=== PATIENT | female | born 1930 | race Caucasian/White ===

== ENCOUNTER 2017-02-16 14:37 | Inpatient (IN) | payer OTHER, MEDICARE ==
[~2017-02-16] VITALS: Ht 157.5 cm; Wt 55.7 kg
[~2017-02-16 14:37] MED LIST: CIPRO500 MG PO; COUMADIN,JANTOVE1 MG PO; DOCUSATE SODIU100 MG PO; FLAGYL500 MG PO; NORCO 5/3251 TABLET PO; RECTIV30 GM PR; SKELAXIN800 MG PO; TOPROL XL50 MG PO; TYLENOL REGULA325 MG PO; ULTRAM50 MG PO; [UNRECOGNIZED DRUG - REMARK] PO
[2017-02-16 16:55] LABS: EOSINOPHIL (%) 0.7 % (0-5); EOSINOPHIL COUNT 0.1 K/uL (0-0.3); HEMATOCRIT 42.1 % (36.0-46.0); IMMATURE GRANULOCYTE (%) 0.7 % (0.0-0.7); IMMATURE GRANULOCYTE COUNT 0.1 K/uL; INSTRUMENT ABS NEUTROPHIL CT 9.6 K/uL; LYMPHOCYTE COUNT 1.7 K/uL (1.0-2.8); MCHC 30.2 G/DL (30.0-36.0); MCV 96.1 FL (83-99); MEAN PLAT.VOLUME 9.7 uM^3 (9.5-12.4); MONOCYTE (%) 6.4 % (3-12); MONOCYTE COUNT 0.8 K/uL (0-0.8); NEUTROPHIL (%) 78.1 % (45-76); NEUTROPHIL COUNT 9.6 K/uL (1.8-6.4); PLATELET COUNT 521 K/uL (156-360); RBC DIS.WIDTH-CV 15.4 % (11.8-14.6); RBC DIS.WIDTH-SD 54.8 % (39-53); RED BLOOD COUNT 4.38 M/uL (3.80-5.20); WHITE BLOOD COUNT 12.3 K/uL (4.1-10.2)
[2017-02-16 17:45] LABS: ADD MIUA? NO; BILIRUBIN NEGATIVE; BLOOD NEGATIVE; COLOR YELLOW ((YELLOW)); GLUCOSE (STRIP) NEGATIVE; KETONES 5; LEUKOCYTES NEGATIVE; NITRITE NEGATIVE; PROTEIN (STRIP) NEGATIVE; UROBILINOGEN 0.2 MG/DL (0.2-1.0)
[2017-02-16 18:08] LABS: SPECIFIC GRAVITY > 1.060 (1.000-1.030)
[2017-02-16 23:59] VITALS: BP 90/47
[2017-02-17] VITALS (7 sets, daily range): BP systolic 90–139; BP diastolic 50–76
[2017-02-17 07:38] LABS: INTER. NORMALIZED RATIO 1.2; PROTHROMBIN TIME 12.4 (9.2-11.2); PTT 29.9 (25-32)
[2017-02-17 08:52] LABS: ANION GAP 9 MEQ/L (2-14); CHLORIDE 105 MEQ/L (99-109); POTASSIUM 4.9 MEQ/L (3.7-5.4); SAMPLE HEMOLYSIS CHECK 0; SAMPLE ICTERIC CHECK 0; SAMPLE LIPEMIA CHECK 0; SODIUM 139 MEQ/L (136-147)
[2017-02-17 08:55] LABS: HEMATOCRIT 31.7 % (36.0-46.0); MCH 29.3 PG (29.0-34.0); MCHC 31.2 G/DL (30.0-36.0); MCV 93.8 FL (83-99); MEAN PLAT.VOLUME 9.9 uM^3 (9.5-12.4); PLATELET COUNT 402 K/uL (156-360); RBC DIS.WIDTH-CV 15.6 % (11.8-14.6); RBC DIS.WIDTH-SD 53.4 % (39-53); WHITE BLOOD COUNT 14.4 K/uL (4.1-10.2)
[2017-02-17 08:58] LABS: GFR ESTIMATE (CALCULATED) > 59 mL/min/; GLUCOSE 82 mg/dL (70-99); RED BLOOD COUNT 3.38 M/uL (3.80-5.20); UREA NITROGEN (BUN) 10 mg/dL (9-23)
[2017-02-17 10:06] LABS: DIRECT BILIRUBIN 0.1 mg/dL (0.0-0.3)
[2017-02-17 10:07] LABS: TOTAL BILIRUBIN 0.5 MG/DL (0.0-1.0)
[2017-02-17 10:11] LABS: ALKALINE PHOSPHATASE 75 IU/L (3-129)
[2017-02-17] MEDS ORDERED: POTASSIUM CHLO20 ME1 PO (10:17)
[2017-02-17] MEDS ORDERED: METOPROLOL SUC100 MG PO (10:18)
[2017-02-17] MEDS ORDERED: FUROSEMIDE20 MG PO (10:19)
[2017-02-17] MEDS ORDERED: LO-DOSE ASPIRIN81 M2 PO (10:20)
[2017-02-17] MEDS ORDERED: CARBIDOPA-LEVO1 EAC5 PO (10:21)
[2017-02-17] MEDS ORDERED: DONEPEZIL HCL10 MG PO (10:22)
[2017-02-17] MEDS ORDERED: VESICARE10 MG PO (10:22)
[2017-02-18 04:03] VITALS: BP 105/55
[2017-02-18 07:13] LABS: EOSINOPHIL (%) 1.2 % (0-5); EOSINOPHIL COUNT 0.1 K/uL (0-0.3); HEMATOCRIT 30.2 % (36.0-46.0); IMMATURE GRANULOCYTE (%) 0.4 % (0.0-0.7); INSTRUMENT ABS NEUTROPHIL CT 7.4 K/uL; LYMPHOCYTE COUNT 1.2 K/uL (1.0-2.8); MCH 28.9 PG (29.0-34.0); MCHC 30.5 G/DL (30.0-36.0); MEAN PLAT.VOLUME 10.1 uM^3 (9.5-12.4); MONOCYTE (%) 6.4 % (3-12); MONOCYTE COUNT 0.6 K/uL (0-0.8); NEUTROPHIL (%) 78.7 % (45-76); NEUTROPHIL COUNT 7.4 K/uL (1.8-6.4); PLATELET COUNT 345 K/uL (156-360); RBC DIS.WIDTH-CV 15.7 % (11.8-14.6); RBC DIS.WIDTH-SD 54.4 % (39-53); RED BLOOD COUNT 3.18 M/uL (3.80-5.20)
[2017-02-18 07:17] LABS: WHITE BLOOD COUNT 9.4 K/uL (4.1-10.2)
[2017-02-18 07:36] LABS: ALKALINE PHOSPHATASE 62 IU/L (3-129); ANION GAP 8 MEQ/L (2-14); CHLORIDE 109 MEQ/L (99-109); GFR ESTIMATE (CALCULATED) > 59 mL/min/; GLUCOSE 88 mg/dL (70-99); POTASSIUM 3.6 MEQ/L (3.7-5.4); SAMPLE HEMOLYSIS CHECK 0; SAMPLE ICTERIC CHECK 0; SAMPLE LIPEMIA CHECK 0; SODIUM 140 MEQ/L (136-147); TOTAL BILIRUBIN 0.2 MG/DL (0.0-1.0); UREA NITROGEN (BUN) 7 mg/dL (9-23)
[2017-02-18 07:47] VITALS: BP 116/64
[2017-02-18 11:46] VITALS: BP 98/57
[2017-02-18 16:32] VITALS: BP 118/66
[2017-02-18 20:00] VITALS: BP 102/62
[2017-02-18 23:50] VITALS: BP 124/74
[2017-02-19 04:07] VITALS: BP 137/70
[2017-02-19 06:36] LABS: HEMATOCRIT 30.8 % (36.0-46.0); MCH 28.9 PG (29.0-34.0); MCHC 30.8 G/DL (30.0-36.0); MCV 93.6 FL (83-99); PLATELET COUNT 360 K/uL (156-360); RBC DIS.WIDTH-CV 15.6 % (11.8-14.6); RBC DIS.WIDTH-SD 53.4 % (39-53); RED BLOOD COUNT 3.29 M/uL (3.80-5.20); WHITE BLOOD COUNT 9.4 K/uL (4.1-10.2)
[2017-02-19 07:34] VITALS: BP 118/73
[2017-02-19 09:35] LABS: CHLORIDE 108 mEq/L (99-109); POTASSIUM 3.4 mEq/L (3.7-5.4); SODIUM 138 mEq/L (136-147)
[2017-02-19 09:37] LABS: GLUCOSE 123 mg/dL (70-99)
[2017-02-19 09:38] LABS: ANION GAP 9 MEQ/L (2-14)
[2017-02-19 09:41] LABS: GFR ESTIMATE (CALCULATED) > 59 mL/min/
[2017-02-19 09:42] LABS: UREA NITROGEN (BUN) 5 mg/dL (9-23)
[2017-02-19 11:14] VITALS: BP 121/60
[2017-02-19 16:00] VITALS: BP 114/55
[2017-02-19 19:48] VITALS: BP 134/72
[2017-02-19 23:34] VITALS: BP 119/58
[2017-02-20 03:11] VITALS: BP 103/54
[2017-02-20 06:09] LABS: HEMATOCRIT 30.6 % (36.0-46.0); MCV 93.3 FL (83-99); MEAN PLAT.VOLUME 9.8 uM^3 (9.5-12.4); PLATELET COUNT 377 K/uL (156-360); RBC DIS.WIDTH-CV 15.7 % (11.8-14.6); RBC DIS.WIDTH-SD 53.7 % (39-53); RED BLOOD COUNT 3.28 M/uL (3.80-5.20); WHITE BLOOD COUNT 9.7 K/uL (4.1-10.2)
[2017-02-20 06:35] LABS: ANION GAP 8 MEQ/L (2-14); CHLORIDE 109 MEQ/L (99-109); GFR ESTIMATE (CALCULATED) > 59 mL/min/; POTASSIUM 3.5 MEQ/L (3.7-5.4); SAMPLE HEMOLYSIS CHECK 0; SAMPLE ICTERIC CHECK 0; SAMPLE LIPEMIA CHECK 0; SODIUM 140 MEQ/L (136-147); UREA NITROGEN (BUN) 3 mg/dL (9-23)
[2017-02-20 06:37] LABS: GLUCOSE 90 mg/dL (70-99)
[2017-02-20 08:31] LABS: MAGNESIUM 1.8 mg/dl (1.3-2.7)
[2017-02-20 10:10] VITALS: BP 111/64
[2017-02-20 12:05] VITALS: BP 99/71
[2017-02-20 15:15] VITALS: BP 104/66
[2017-02-20 20:18] VITALS: BP 109/74
[2017-02-21] VITALS (7 sets, daily range): BP systolic 105–127; BP diastolic 56–89
[2017-02-21 06:41] LABS: HEMATOCRIT 32.8 % (36.0-46.0); MCH 29.1 PG (29.0-34.0); MCHC 31.1 G/DL (30.0-36.0); MCV 93.7 FL (83-99); PLATELET COUNT 420 K/uL (156-360); RBC DIS.WIDTH-CV 15.9 % (11.8-14.6); RBC DIS.WIDTH-SD 54.5 % (39-53); WHITE BLOOD COUNT 9.6 K/uL (4.1-10.2)
[2017-02-21 07:03] LABS: ANION GAP 7 MEQ/L (2-14); CHLORIDE 108 MEQ/L (99-109); GFR ESTIMATE (CALCULATED) > 59 mL/min/; GLUCOSE 87 mg/dL (70-99); POTASSIUM 3.8 MEQ/L (3.7-5.4); SAMPLE HEMOLYSIS CHECK 0; SAMPLE ICTERIC CHECK 0; SAMPLE LIPEMIA CHECK 0; SODIUM 137 MEQ/L (136-147); UREA NITROGEN (BUN) 3 mg/dL (9-23)
[2017-02-22 03:52] VITALS: BP 114/76
[2017-02-22 06:50] VITALS: BP 121/71
[2017-02-22] MEDS ORDERED: FLAGYL500 MG/100 IV (11:24)
[2017-02-22] MEDS ORDERED: ROCEPHIN1 GM/50 ML IV (11:24)
[2017-02-22 12:04] VITALS: BP 123/74
== END 2017-02-22 15:46 | DRG 872 ==
LOC: EME 14:37 → EDOF 17:00 → 2EAST 17:00
PROVIDERS: Emergency Medicine; Hospitalist; Physician Assistant; Radiology Diagnostic Radiology
PROC: 0W9J30Z Drainage of Pelvic Cavity with Drainage Device, Percutaneous Approach (ICD-10-PCS; principal; 2017-02-17)
DX: A41.9 Sepsis, unspecified organism (principal); N82.3 Fistula of vagina to large intestine; K57.92 Diverticulitis of intestine, part unspecified, without perforation or abscess without bleeding; I48.2 Chronic atrial fibrillation; I95.9 Hypotension, unspecified; G20 Parkinson's disease; D64.9 Anemia, unspecified; G62.9 Polyneuropathy, unspecified; F03.90 Unspecified dementia, unspecified severity, without behavioral disturbance, psychotic disturbance, mood disturbance, and anxiety; B95.1 Streptococcus, group B, as the cause of diseases classified elsewhere
CPT/HCPCS: 36415; 74177; 75989; 80048; 80053; 80076; 81003; 82948; 83605; 83690; 83735; 85025; 85025 91; 85027; 85610; 85730; 87040; 87070; 87075; 87076; 87077; 87185; 87186; 87205; 93005; 99281; 99285; C1729; C1769; J0692; J0696; J1650; J2270; J2405; J2543; J3010; J3475; J7030; J7050; S0030

== ENCOUNTER 2017-03-06 14:25 | Inpatient (IN) | payer OTHER, MEDICARE ==
[~2017-03-06] VITALS: Ht 157.5 cm; Wt 56.0 kg
[~2017-03-06 14:25] MED LIST changes: +CARBIDOPA-LEVO1 EAC5 PO; +DONEPEZIL HCL10 MG PO; +FLAGYL500 MG/100 IV; +FUROSEMIDE20 MG PO; +LO-DOSE ASPIRIN81 M2 PO; +METOPROLOL SUC100 MG PO; +POTASSIUM CHLO20 ME1 PO; +ROCEPHIN1 GM/50 ML IV; +VESICARE10 MG PO
[2017-03-06] MEDS ORDERED: MILK OF MAGN PO (15:00)
[2017-03-06 16:34] LABS: EOSINOPHIL (%) 2.1 % (0-5); EOSINOPHIL COUNT 0.2 K/uL (0-0.3); HEMATOCRIT 39.1 % (36.0-46.0); IMMATURE GRANULOCYTE (%) 0.5 % (0.0-0.7); IMMATURE GRANULOCYTE COUNT 0.1 K/uL; LYMPHOCYTE COUNT 2.8 K/uL (1.0-2.8); MCH 29.6 PG (29.0-34.0); MCHC 31.7 G/DL (30.0-36.0); MCV 93.3 FL (83-99); MEAN PLAT.VOLUME 10.2 uM^3 (9.5-12.4); MONOCYTE (%) 8.6 % (3-12); NEUTROPHIL (%) 63.5 % (45-76); PLATELET COUNT 316 K/uL (156-360); RBC DIS.WIDTH-CV 17.2 % (11.8-14.6); RBC DIS.WIDTH-SD 59.9 % (39-53); RED BLOOD COUNT 4.19 M/uL (3.80-5.20)
[2017-03-06 16:37] LABS: CHLORIDE 104 mEq/L (99-109); POTASSIUM 3.9 mEq/L (3.7-5.4); SODIUM 138 mEq/L (136-147)
[2017-03-06 16:39] LABS: GLUCOSE 117 mg/dL (70-99)
[2017-03-06 16:41] LABS: ANION GAP 10 MEQ/L (2-14); TOTAL BILIRUBIN 0.5 mg/dL (0.0-1.0)
[2017-03-06 16:43] LABS: ALKALINE PHOSPHATASE 51 IU/L (3-129); GFR ESTIMATE (CALCULATED) > 59 mL/min/
[2017-03-06 16:44] LABS: UREA NITROGEN (BUN) 7 mg/dL (9-23)
[2017-03-06 17:18] LABS: C-REACTIVE PROTEIN 10.9 MG/L (0-10)
[2017-03-06 18:09] LABS: ERTH.SED.RATE 51 MM/HR (0-30)
[2017-03-06] MEDS ORDERED: CALCIUM 600 +1 EAC2 PO (21:50)
[2017-03-06] MEDS ORDERED: KEFLEX500 MG PO (21:51)
[2017-03-06] MEDS ORDERED: FLAGYL500 MG PO (21:52)
[2017-03-06] MEDS ORDERED: DULCOLAX10 MG PR (21:53)
[2017-03-06] MEDS ORDERED: FLEET ENEMA-AD118 ML PR (21:54)
[2017-03-07] VITALS (7 sets, daily range): BP systolic 101–145; BP diastolic 51–95
[2017-03-07 05:53] LABS: HEMATOCRIT 37.3 % (36.0-46.0); MCH 28.8 PG (29.0-34.0); MCHC 29.8 G/DL (30.0-36.0); MCV 96.6 FL (83-99); MEAN PLAT.VOLUME 10.2 uM^3 (9.5-12.4); PLATELET COUNT 241 K/uL (156-360); RBC DIS.WIDTH-CV 17.2 % (11.8-14.6); RBC DIS.WIDTH-SD 61.6 % (39-53); RED BLOOD COUNT 3.86 M/uL (3.80-5.20)
[2017-03-07 06:15] LABS: ANION GAP 6 MEQ/L (2-14); CHLORIDE 105 MEQ/L (99-109); GFR ESTIMATE (CALCULATED) > 59 mL/min/; SAMPLE HEMOLYSIS CHECK 1; SAMPLE ICTERIC CHECK 0; SAMPLE LIPEMIA CHECK 0; SODIUM 142 MEQ/L (136-147); UREA NITROGEN (BUN) 5 mg/dL (9-23)
[2017-03-07 06:17] LABS: GLUCOSE 86 mg/dL (70-99); POTASSIUM 4.1 MEQ/L (3.7-5.4)
[2017-03-08 04:04] VITALS: BP 130/74
[2017-03-08 05:49] LABS: HEMATOCRIT 38.1 % (36.0-46.0); MCH 28.8 PG (29.0-34.0); MCHC 30.2 G/DL (30.0-36.0); MCV 95.5 FL (83-99); MEAN PLAT.VOLUME 10.6 uM^3 (9.5-12.4); PLATELET COUNT 237 K/uL (156-360); RBC DIS.WIDTH-CV 17.1 % (11.8-14.6); RBC DIS.WIDTH-SD 59.7 % (39-53); RED BLOOD COUNT 3.99 M/uL (3.80-5.20); WHITE BLOOD COUNT 8.5 K/uL (4.1-10.2)
[2017-03-08 06:06] LABS: ANION GAP 6 MEQ/L (2-14); CHLORIDE 104 MEQ/L (99-109); GFR ESTIMATE (CALCULATED) > 59 mL/min/; GLUCOSE 69 mg/dL (70-99); POTASSIUM 3.7 MEQ/L (3.7-5.4); SAMPLE HEMOLYSIS CHECK 0; SAMPLE ICTERIC CHECK 0; SAMPLE LIPEMIA CHECK 0; SODIUM 141 MEQ/L (136-147); UREA NITROGEN (BUN) 6 mg/dL (9-23)
[2017-03-08 08:27] VITALS: BP 144/80
[2017-03-08 11:09] VITALS: BP 142/70
[2017-03-08 16:14] VITALS: BP 110/57
[2017-03-08 19:34] VITALS: BP 137/70
[2017-03-08 23:25] VITALS: BP 126/74
[2017-03-09 04:41] VITALS: BP 122/74
[2017-03-09 05:35] LABS: HEMATOCRIT 35.3 % (36.0-46.0); MCH 29.1 PG (29.0-34.0); MCHC 30.9 G/DL (30.0-36.0); MCV 94.4 FL (83-99); MEAN PLAT.VOLUME 10.8 uM^3 (9.5-12.4); PLATELET COUNT 219 K/uL (156-360); RBC DIS.WIDTH-CV 16.9 % (11.8-14.6); RBC DIS.WIDTH-SD 58.8 % (39-53); RED BLOOD COUNT 3.74 M/uL (3.80-5.20); WHITE BLOOD COUNT 7.9 K/uL (4.1-10.2)
[2017-03-09 05:38] LABS: ANION GAP 5 MEQ/L (2-14); CHLORIDE 104 MEQ/L (99-109); GFR ESTIMATE (CALCULATED) > 59 mL/min/; GLUCOSE 84 mg/dL (70-99); POTASSIUM 3.8 MEQ/L (3.7-5.4); SAMPLE HEMOLYSIS CHECK 0; SAMPLE ICTERIC CHECK 0; SAMPLE LIPEMIA CHECK 0; SODIUM 140 MEQ/L (136-147); UREA NITROGEN (BUN) 8 mg/dL (9-23)
[2017-03-09 07:52] VITALS: BP 120/74
[2017-03-09 11:14] VITALS: BP 128/64
[2017-03-09] MEDS ORDERED: DIGOXIN125 MCG PO (11:14)
[2017-03-09] MEDS ORDERED: CEPHALEXIN500 MG PO (11:14)
[2017-03-09] MEDS ORDERED: METRONIDAZOLE500 MG PO (11:14)
== END 2017-03-09 16:01 | disposition home health service (06) | DRG 563 ==
LOC: EME → EDBD 14:25 → EME 14:25 → EDOF 22:29 → 3EAST 22:29
PROVIDERS: Emergency Medicine; Hospitalist; Internal Medicine; Nurse Practitioner Family
DX: S93.402A Sprain of unspecified ligament of left ankle, initial encounter (principal); X58.XXXA Exposure to other specified factors, initial encounter; N82.3 Fistula of vagina to large intestine; K57.92 Diverticulitis of intestine, part unspecified, without perforation or abscess without bleeding; G20 Parkinson's disease; G62.9 Polyneuropathy, unspecified; F03.90 Unspecified dementia, unspecified severity, without behavioral disturbance, psychotic disturbance, mood disturbance, and anxiety; I10 Essential (primary) hypertension; B37.2 Candidiasis of skin and nail; B37.3 Candidiasis of vulva and vagina; I48.2 Chronic atrial fibrillation; L89.151 Pressure ulcer of sacral region, stage 1; Z87.891 Personal history of nicotine dependence; Z88.2 Allergy status to sulfonamides; Z88.0 Allergy status to penicillin; Z79.82 Long term (current) use of aspirin
CPT/HCPCS: 71010; 73590; 73610; 73718; 74177; 80048; 80053; 83605; 84550; 85025; 85027; 85651; 86140; 87070; 87075; 87106; 87205; 93971; 94799; 99281; 99285; G0378; G8978 CL; G8979 GP CK; J0744; J1650; J3010; J7030; S0030

== ENCOUNTER 2017-03-13 19:27 | Inpatient (IN) | payer OTHER, MEDICARE ==
[~2017-03-13] VITALS: Ht 157.5 cm; Wt 61.6 kg
[~2017-03-13 19:27] MED LIST changes: +CALCIUM 600 +1 EAC2 PO; +CEPHALEXIN500 MG PO; +DIGOXIN125 MCG PO; +DULCOLAX10 MG PR; +FLEET ENEMA-AD118 ML PR; +KEFLEX500 MG PO; +METRONIDAZOLE500 MG PO; +MILK OF MAGN PO
[2017-03-13 21:10] LABS: CHLORIDE 104 mEq/L (99-109); POTASSIUM 3.4 mEq/L (3.7-5.4); SODIUM 143 mEq/L (136-147)
[2017-03-13 21:11] LABS: GLUCOSE 112 mg/dL (70-99)
[2017-03-13 21:13] LABS: ANION GAP 16 MEQ/L (2-14)
[2017-03-13 21:15] LABS: GFR ESTIMATE (CALCULATED) > 59 mL/min/
[2017-03-13 21:16] LABS: UREA NITROGEN (BUN) 9 mg/dL (9-23)
[2017-03-13 21:18] LABS: CREATINE KINASE 6 IU/L (1-294)
[2017-03-13 21:24] LABS: TROP-I INTERPRETATION NEGATIVE; TROPONIN-I 0.04 ng/mL (0.0-0.30)
[2017-03-13 21:29] LABS: EOSINOPHIL (%) 0.9 % (0-5); EOSINOPHIL COUNT 0.1 K/uL (0-0.3); HEMATOCRIT 38.9 % (36.0-46.0); IMMATURE GRANULOCYTE (%) 0.3 % (0.0-0.7); INSTRUMENT ABS NEUTROPHIL CT 6.9 K/uL; LYMPHOCYTE COUNT 0.8 K/uL (1.0-2.8); MCH 29.6 PG (29.0-34.0); MCHC 31.6 G/DL (30.0-36.0); MCV 93.7 FL (83-99); MEAN PLAT.VOLUME 10.6 uM^3 (9.5-12.4); MONOCYTE (%) 8.7 % (3-12); MONOCYTE COUNT 0.8 K/uL (0-0.8); NEUTROPHIL (%) 80.5 % (45-76); NEUTROPHIL COUNT 6.9 K/uL (1.8-6.4); PLATELET COUNT 284 K/uL (156-360); RBC DIS.WIDTH-CV 16.5 % (11.8-14.6); RED BLOOD COUNT 4.15 M/uL (3.80-5.20); WHITE BLOOD COUNT 8.6 K/uL (4.1-10.2)
[2017-03-13 21:52] LABS: ADD MIUA? YES; BILIRUBIN SMALL; BLOOD NEGATIVE; COLOR AMBER ((YELLOW)); GLUCOSE (STRIP) NEGATIVE; KETONES 80; LEUKOCYTES SMALL; NITRITE NEGATIVE; PROTEIN (STRIP) 30; SPECIFIC GRAVITY 1.029 (1.000-1.030); UROBILINOGEN 0.2 MG/DL (0.2-1.0)
[2017-03-13 22:01] LABS: BACTERIA NONE SEEN /HPF; EPITHELIAL CELLS 1+ /HPF; MUCUS 2+ /LPF; RED BLOOD CELLS 0-5 /HPF (0-5); UCUL ADDED? NO; WHITE BLOOD CELLS 15-20 /HPF (0-5)
[2017-03-13] MEDS ORDERED: CEPHALEXIN500 MG PO (23:28)
[2017-03-13] MEDS ORDERED: DIGOXIN125 MCG PO (23:29)
[2017-03-14 08:50] VITALS: BP 123/83
[2017-03-14 08:55] LABS: CHLORIDE 106 mEq/L (99-109); MAGNESIUM 1.8 mg/dL (1.3-2.7); POTASSIUM 3.6 mEq/L (3.7-5.4); SODIUM 141 mEq/L (136-147)
[2017-03-14 08:57] LABS: GLUCOSE 98 mg/dL (70-99)
[2017-03-14 08:59] LABS: ANION GAP 14 MEQ/L (2-14); TOTAL BILIRUBIN 0.4 mg/dL (0.0-1.0)
[2017-03-14 09:01] LABS: ALKALINE PHOSPHATASE 54 IU/L (3-129); GFR ESTIMATE (CALCULATED) > 59 mL/min/
[2017-03-14 09:02] LABS: UREA NITROGEN (BUN) 8 mg/dL (9-23)
[2017-03-14 10:25] LABS: PREALBUMIN 11.8 mg/dL (10-40); SAMPLE HEMOLYSIS CHECK 0; SAMPLE ICTERIC CHECK 0; SAMPLE LIPEMIA CHECK 0; TRIGLYCERIDES 98 MG/DL (Normal: <150)
[2017-03-14 11:30] VITALS: BP 117/71
[2017-03-14 13:09] LABS: DIGOXIN 0.8 ng/mL (0.8-2.0)
[2017-03-14 19:45] VITALS: BP 141/75
[2017-03-15 00:42] VITALS: BP 132/58
[2017-03-15 04:30] VITALS: BP 124/73
[2017-03-15 07:19] LABS: HEMATOCRIT 33.7 % (36.0-46.0); MCH 29.3 PG (29.0-34.0); MCHC 30.6 G/DL (30.0-36.0); MCV 95.7 FL (83-99); MEAN PLAT.VOLUME 11.1 uM^3 (9.5-12.4); PLATELET COUNT 234 K/uL (156-360); RBC DIS.WIDTH-CV 16.4 % (11.8-14.6); RBC DIS.WIDTH-SD 58.4 % (39-53); RED BLOOD COUNT 3.52 M/uL (3.80-5.20); WHITE BLOOD COUNT 8.6 K/uL (4.1-10.2)
[2017-03-15 07:22] LABS: ALKALINE PHOSPHATASE 40 IU/L (3-129); ANION GAP 10 MEQ/L (2-14); CHLORIDE 110 MEQ/L (99-109); GFR ESTIMATE (CALCULATED) > 59 mL/min/; GLUCOSE 124 mg/dL (70-99); POTASSIUM 3.3 MEQ/L (3.7-5.4); SAMPLE HEMOLYSIS CHECK 0; SAMPLE ICTERIC CHECK 0; SAMPLE LIPEMIA CHECK 0; SODIUM 144 MEQ/L (136-147); TOTAL BILIRUBIN 0.4 MG/DL (0.0-1.0); UREA NITROGEN (BUN) 8 mg/dL (9-23)
[2017-03-15 19:53] VITALS: BP 129/69
[2017-03-15 23:48] VITALS: BP 137/95
[2017-03-16 04:30] VITALS: BP 119/75
[2017-03-16 07:28] LABS: HEMATOCRIT 35.9 % (36.0-46.0); MCH 28.8 PG (29.0-34.0); MCHC 29.8 G/DL (30.0-36.0); MCV 96.8 FL (83-99); PLATELET COUNT 245 K/uL (156-360); RBC DIS.WIDTH-SD 60.8 % (39-53); RED BLOOD COUNT 3.71 M/uL (3.80-5.20)
[2017-03-16 07:37] LABS: ANION GAP 10 MEQ/L (2-14); CHLORIDE 112 MEQ/L (99-109); GFR ESTIMATE (CALCULATED) > 59 mL/min/; GLUCOSE 107 mg/dL (70-99); POTASSIUM 3.7 MEQ/L (3.7-5.4); SAMPLE HEMOLYSIS CHECK 0; SAMPLE ICTERIC CHECK 0; SAMPLE LIPEMIA CHECK 0; SODIUM 148 MEQ/L (136-147); UREA NITROGEN (BUN) 12 mg/dL (9-23)
[2017-03-16 07:43] LABS: WHITE BLOOD COUNT 11.6 K/uL (4.1-10.2)
[2017-03-16 10:00] VITALS: BP 123/83
[2017-03-17 23:54] VITALS: BP 00/00
== END 2017-03-19 18:20 | DRG 100 ==
LOC: EME → EDBD 19:27 → EME 19:27 → EDOF 03-14 03:59 → 4EAST 03-14 03:59 → 5EAST 03-16 18:11
PROVIDERS: Emergency Medicine; Hospitalist; Physician Assistant
DX: G40.909 Epilepsy, unspecified, not intractable, without status epilepticus (principal); J96.01 Acute respiratory failure with hypoxia; J18.9 Pneumonia, unspecified organism; K57.20 Diverticulitis of large intestine with perforation and abscess without bleeding; B37.89 Other sites of candidiasis; N82.3 Fistula of vagina to large intestine; E87.6 Hypokalemia; Y95 Nosocomial condition; I10 Essential (primary) hypertension; I48.2 Chronic atrial fibrillation; L98.499 Non-pressure chronic ulcer of skin of other sites with unspecified severity; Z66 Do not resuscitate; G20 Parkinson's disease; F02.80 Dementia in other diseases classified elsewhere, unspecified severity, without behavioral disturbance, psychotic disturbance, mood disturbance, and anxiety; G62.9 Polyneuropathy, unspecified; Z79.01 Long term (current) use of anticoagulants; Z79.82 Long term (current) use of aspirin; Z87.891 Personal history of nicotine dependence; Z88.0 Allergy status to penicillin; Z88.2 Allergy status to sulfonamides
CPT/HCPCS: 70450; 70551; 71010; 74177; 80048; 80053; 80162; 81003; 82550; 83605; 83735; 84100; 84134; 84478; 84484; 85025; 85025 GA; 85027; 87040; 92610 GN; 93005; 94640; 94640 76; 94668; 94799; 95819; 99202; 99281; 99285; J0456; J1200; J1450; J1650; J1953; J2060; J2270; J2543; J3370; J7030; J7042; J7050; S0030; S0073